=== PATIENT | female | born 1990 | race Two or more races ===

== ENCOUNTER 2025-06-03 10:02 | Emergency (ER) | payer OTHER ==
[~2025-06-03] VITALS: Ht 160 cm; Wt 92.5 kg
[2025-06-03] MEDS ORDERED: IBUP-1114 PO (10:11)
[2025-06-03] MEDS: IBUPROFEN 400 MG TAB PO ONE (10:41)
[2025-06-03] MEDS ORDERED: TRAM50TA2 PO (13:26)
[2025-06-03 13:32] VITALS: BP 122/61; TEMP 98; O2SAT 100
== END 2025-06-03 13:34 | disposition home or self-care (01) ==
LOC: M ED 10:02
DX: S82.431A Displaced oblique fracture of shaft of right fibula, initial encounter for closed fracture (principal); W00.9XXA Unspecified fall due to ice and snow, initial encounter; F10.10 Alcohol abuse, uncomplicated; Y92.410 Unspecified street and highway as the place of occurrence of the external cause; Y93.89 Activity, other specified; Y99.9 Unspecified external cause status; Z88.5 Allergy status to narcotic agent; Z88.6 Allergy status to analgesic agent; Z79.1 Long term (current) use of non-steroidal anti-inflammatories (NSAID)

== ENCOUNTER → 2025-06-04 | Outpatient (CLI) | payer OTHER ==
[~2025-06-04] MED LIST: IBUP-1114 PO; TRAM50TA2 PO
== END ==
LOC: M SOG 09:41
PROVIDERS: ATTEND Orthopaedic Surgery
DX: M25.571 Pain in right ankle and joints of right foot (principal); S82.401D Unspecified fracture of shaft of right fibula, subsequent encounter for closed fracture with routine healing

== ENCOUNTER → 2025-06-11 | Outpatient (CLI) | payer OTHER | LOC: M SOG 07:34 | PROVIDERS: ATTEND Orthopaedic Surgery | DX: S82.64XA Nondisplaced fracture of lateral malleolus of right fibula, initial encounter for closed fracture (principal); X58.XXXA Exposure to other specified factors, initial encounter; Y92.9 Unspecified place or not applicable; Y93.9 Activity, unspecified; Y99.9 Unspecified external cause status ==

== ENCOUNTER → 2025-06-25 | Outpatient (CLI) | payer OTHER | LOC: M SOG 07:31 | PROVIDERS: ATTEND Orthopaedic Surgery | DX: S82.64XA Nondisplaced fracture of lateral malleolus of right fibula, initial encounter for closed fracture (principal); Y93.9 Activity, unspecified; Y92.9 Unspecified place or not applicable ==